=== PATIENT | female | born 1990 | race Asian ===

== ENCOUNTER → 2016-11-24 | Outpatient (CLI) | payer OTHER ==
--- NOTE | 2016-11-24 13:36 | US ---
November 24, 2015 Dear Ms. Kaila Judd, Thank you for requesting consultation and a ultrasound to evaluate anatomy for your patient, Mrs. Good. As you know, Alejandra is a 26 year old G 1 P 0 with a mishra dating 21 w 4 d; NUZHAT of 04/02/17 by LMP and 6 week ultrasound. She is a healthy woman without chroni c medical problems. She had a reassuring NIPT. ULTRASOUND Number of fetuses: 1 Placental location: Posterior; no evidence of previa Placental cord insertion: Intraplacental presentation: Cephalic Cervix: 3.0-3.1 cm viewed transvaginally. There is no evidence of insufficiency. Maximum Vertical Pocket: 5.5 cm The adnexa were evaluated. No pathology was seen. Right ovary is visualized and seen as normal. It measures 2.3 x 1.6 x 1.5 cm. Left ovary is visualized and seen as normal. It measures 2.5 x 1.9 x 0.9 cm. MEASUREMENTS: Biparietal diameter: 53 mm 22 weeks, 0days Head circumference: 194 mm 21 weeks, 5 days Abdominal circumference: 177 mm 22 weeks, 5days Femur length: 37 mm 21weeks, 6 days Humerus length: 34 mm 21 weeks, 4days Transcerebellar diameter: 23 mm 21 weeks, 1 days Average ultrasound age: 22 weeks, 1 days Estimated weight: 483 gm weight percentile: 76% ANATOMY Supratentorial brain: Normal including views of the falx, cavum septum pellucidum and choroids Lateral Ventricle: Normal, measuring 6.o mm Posterior fossa: Normal including the cerebellum and cisterna magna Spine: Normal Nuchal fold: 5.5 mm normal Face: Normal views of the lip and nose area Profile: Normal Palate: Normal appearance of the alveolar ridge Heart: Normal four chamber view and the outflow tracts are seen appropriately oriented and crossing. SVC/IVC seen. Aortic arch is seen. Heart Rate 144 bpm Diaphragm: Normal appearance without overt abnormality detected Stomach: Normal Umbilical cord insertion: Normal Right kidney: Normal Left kidney: Normal Bladder: Normal Number of cord vessels: Three Upper extremities: Normal Lower extremities: Normal Gender: Male IMPRESSION: 1. Intrauterine at 21 w 4d, ultrasound is consistent with her established NUZHAT of 04/02/17. 2. Normal anatomical survey. 3. Cervical length is normal at 3.0cm without evidence of insufficiency. RECOMMENDATIONS: I was pleased to review today's ultrasound with your patient and her using an Maltese interpre ter. I reassured them that the baby is growing appropriately with normal amniotic fluid volume. Our detailed review of the anatomy did not reveal any overt abnormalities. Future ultrasound and consultation is left to your clinical discretion. Thank you for allowing us the opportunity to evaluate your patient. Should you have any further ques tions or concerns please do not hesitate to contact me. Lila Poole MD Sr Account Executive Maternal Medicine Diagnosis Department of Obstetrics & Gynecology [facility]
--- NOTE | 2016-11-25 11:08 | US ---
Complete Detailed Obstetrical Sonography Clinical History: 26-year-old female presenting for anatomic screening and biometry. Technique: A curvilinear 5 MHz transducer was used to sonographically evaluate the fetus and placenta . M-mode Doppler is used. Dr. Lila Poole is present. Supplementary endovaginal sonography was also o btained of the maternal cervix. LMP: June 26, 2016, indicating an age of 21 weeks 4 days, and an estimated date of delivery of April 02, 2017. Comparison Study: None currently available. Findings: There is a single viable intrauterine gestation with the fetus currently vertex in presenta tion. The placenta is posteriorly situated, with no evidence of previa. The tip of the placenta termi nates 4.2 cm from the cervical os. There is a three-vessel cord with a normal intraplacental cord ins ertion. The maternal cervix measures between 3.0-3.3 cm in diameter endovaginally, with no funneling. The amniotic fluid volume is appropriate, with a maximal vertical pocket of 5.5 cm. The maternal rig ht ovary measures 2.3 x 1.6 x 1.5 cm, and the maternal left ovary measures 2.5 x 0.9 x 1.9 cm. The anatomic survey reveals a normal appearance to the craniovertebral axis. The lateral ventri cular diameter is 6 mm, the cisterna magna is 2.7 mm, and the nuchal fold is 5.5 mm. The spine is irena luated in sagittal and transverse planes, and appears normal. The nasolabial anatomy and the al veolar ridge are normal. There is a four-chambered heart with right and left ventricular outflow trac ts and an aortic arch identified. The heart rate is 144 beats per minute. The diaphragm is inta ct. The stomach, right and left kidneys, urinary bladder, and the upper and lower extremities appear normal. The gender is believed to be male. biometry is as follows: The biparietal diameter is 53 mm, corresponding to an age of 22 weeks 0 days +/- 1 week 6 days, which is at the 63rd percentile. The head circumference is 194 mm, corresponding to an age of 21 weeks 5 days +/- 1 week 4 days, which is at the 42nd percentile. The abdominal circumference is 177 mm corresponding to an age of 22 weeks 5 days +/- 2 weeks 1 day, w hich is at the 76th percentile. The femur length is 37 mm, corresponding to an age of 21 weeks 6 days +/- 1 week 6 days, which is at the 49th percentile. The humeral length is 34 mm, corresponding to an age of 21 weeks 4 days, and the transcerebellar diam eter is 23 mm, corresponding to an age of 21 weeks 1 day +/- 1 week 0 days, for a composite gestation al age of 22 weeks 1 day. The estimated weight is 483 grams +/- 171 grams, which is 1 pound 1 ounce +/- 2 ounces, which i s at the 76th percentile. The head circumference to abdominal circumference ratio is normal, measuring 1.10. The femur length t o biparietal diameter ratio measures 71%, and the femur length to abdominal circumference ratio is no rmal, measuring 21%. Impression: There is a single viable intrauterine gestation with no overt structural anomaly salazar ving a normal amniotic fluid volume and biometry concordant with menstrual dating. Please also refer to Dr. Poole's separate assessments and specific recommendations for follow up.
== END ==
LOC: FIMAGING 12:24
PROVIDERS: ATTEND Midwife
DX: Z34.02 Encounter for supervision of normal first pregnancy, second trimester (principal); Z3A.21 21 weeks gestation of pregnancy

== ENCOUNTER 2017-01-02 14:37 | Emergency (ER) | payer OTHER ==
[2017-01-02 14:45] VITALS: TEMP 98.2
[2017-01-02] MEDS ORDERED: NS 1,000 ML IV ONE (15:00)
[2017-01-02] MEDS ORDERED: AZITHROMYCIN IV 500 MG in D5W 250 ML IV ONE (15:00)
[2017-01-02] MEDS ORDERED: ONDANSETRON 4 MG/2 ML VIAL IVP ONE (15:00)
--- NOTE | 2017-01-02 15:04 | EDPHY ---
H & P Stated Complaint: FEVER, BODY ACHES, VOMITING Time Seen by Provider: 01/02/17 14:52 HPI/ROS: CHIEF COMPLAINT: Sinus congestion, ear pain, fevers HISTORY OF PRESENT ILLNESS: Patient is a 26-year-old woman who is 27 weeks comes to the emergency department complaining of 2 days worth of sinus congestion left ear pain and intermittent fevers. She does not feel febrile today. She did vomit once today after drinking honey and water. She has had trouble with nausea throughout her and take Zofran daily but did not take it today. She denies having any abdominal pain. She can feel the baby moving. No bleeding. No urinary symptoms. No diarrhea. REVIEW OF SYSTEMS: Constitutional: See HPI EENTM: See HPI Respiratory: denies: cough, shortness of breath Cardiac: denies: chest pain, irregular heart rate, lightheadedness, palpitations Gastrointestinal/Abdominal: See HPI Genitourinary: denies: dysuria, frequency, hematuria, pain Musculoskeletal: denies: joint pain, muscle pain Skin: denies: lesions, rash, jaundice, bruising Neurological: denies: headache, numbness, paresthesia, tingling, dizziness, weakness Hematologic/Lymphatic: denies: blood clots, easy bleeding, easy bruising Immunologic/allergic: denies: HIV/AIDS, transplant EXAM: GENERAL: Well-appearing, well-nourished and in no acute distress. HEAD: Atraumatic, normocephalic. EYES: Pupils equal round and reactive to light, extraocular movements intact, sclera anicteric, conjunctiva are normal. ENT: Sinus congestion, left tympanic membrane erythematous and bulging. oropharynx clear without exudates. Moist mucous membranes. NECK: Normal range of motion, supple without lymphadenopathy or JVD. LUNGS: Breath sounds clear to auscultation bilaterally and equal. No wheezes rales or rhonchi. HEART: Regular rate and rhythm without murmurs, rubs or gallops. ABDOMEN: Gravid above the umbilicus, nontender. normoactive bowel sounds. No guarding, no rebound. BACK: No CVA tenderness, no spinal tenderness, step-offs or deformities EXTREMITIES: Normal range of motion, no pitting or edema. No clubbing or cyanosis. NEUROLOGICAL: Cranial nerves II through XII grossly intact. Normal speech, normal gait. 5/5 strength, normal movement in all extremities, normal sensation PSYCH: Normal mood, normal affect. SKIN: Warm, dry, normal turgor, no visible rashes or lesions. Source: Patient Exam Limitations: No limitations - Personal History EDC: 04/08/17 Current Tetanus Diphtheria and Acellular Pertussis (TDAP): Unsure - Medical/Surgical History Hx Asthma: No Hx Chronic Respiratory Disease: No Hx Diabetes: No Hx Cardiac Disease: No Hx Renal Disease: No Hx Cirrhosis: No Other PMH: DENIES - Family History Significant Family History: No pertinent family hx - Social History Smoking Status: Never smoked Alcohol Use: Sober Drug Use: None Constitutional: Initial Vital Signs Temperature (C) 36.8 C 01/02/17 14:42 Heart Rate 110 H 01/02/17 14:42 Respiratory Rate 18 01/02/17 14:42 Blood Pressure 144/74 H 01/02/17 14:42 O2 Sat (%) 98 01/02/17 14:42 O2 Delivery Mode Room Air Allergies/Adverse Reactions: No Known Allergies Allergy (Verified 01/02/17 23:18) Home Medications: Medication Instructions Recorded AZITHROMYCIN [Z-PACK] 250 mg PO DAILY #4 tab 01/02/17 01/02/17 Medical Decision Making ED Course/Re-evaluation: Patient clearly has an otitis media as well as upper respiratory infection. She and her are requesting IV antibiotics here today because of her vomit earlier today. We agreed to this and will hydrate her as well because of her status. I will discharge with a prescription for azithromycin. Patient and agree with this plan. They declined further workup or testing at this time. Differential Diagnosis: Partial list of the Differential diagnosis considered include but were not limited to; upper respiratory tract infection, otitis media, influenza, pharyngitis and although unlikely based on the history and physical exam, I also considered abscess, peptic ulcer disease, obstruction, demise, urinary tract infection, appendicitis. I discussed these differential diagnoses and the plan with the patient as well as the usual and expected course. The patient understands that the diagnosis is provisional and that in medicine we are not always correct and that further workup is often warranted. Usual and customary warnings were given. All of the patient's questions were answered. The patient was instructed to return to the emergency department should the symptoms at all worsen or return, otherwise to followup with the physician as we discussed. - Data Points Medications Given: Discontinued Medications Azithromycin 500 mg/ Dextrose 255 mls @ 255 mls/hr IV EDNOW ONE PRN Reason: Protocol Stop: 01/02/17 15:59 Last Admin: 01/02/17 15:32 Dose: 255 mls Sodium Chloride (Ns) 1,000 mls @ 0 mls/hr IV ONCE ONE PRN Reason: Wide Open Stop: 01/02/17 15:01 Last Admin: 01/02/17 15:25 Dose: 1,000 mls Ondansetron HCl (Zofran) 4 mg IVP EDNOW ONE Stop: 01/02/17 15:01 Last Admin: 01/02/17 15:26 Dose: 4 mg Ondansetron HCl (Zofran Odt) 4 mg PO EDNOW ONE Stop: 01/02/17 16:21 Last Admin: 01/02/17 16:38 Dose: 4 mg Departure - Departure Disposition: Home, Routine, Self-Care Clinical Impression: Otitis media Qualifiers: Otitis media type: suppurative Laterality: left Chronicity: acute Recurrence: not specified as recurrent Spontaneous tympanic membrane rupture: without spontaneous rupture Qualified Code(s): H66.002 - Acute suppurative otitis media without spontaneous rupture of ear drum, left ear Qualifiers: Weeks of gestation: 27 weeks Qualified Code(s): Z3A.27 - 27 weeks gestation of Condition: Fair Instructions: Azithromycin (By mouth), Otitis Media (ED) Referrals: NONE *PRIMARY CARE P,. [Primary Care Provider] - As per Instructions Prescriptions: AZITHROMYCIN [Z-PACK] 250 mg PO DAILY #4 tab
[2017-01-02] MEDS ORDERED: ONDANSETRON DISINTEGRATING 4 MG TAB PO ONE (16:20)
[2017-01-02 16:42] VITALS: BP 131/91; PULSE 107; RESP 14; O2SAT 96
== END 2017-01-02 16:42 | disposition home or self-care (01) ==
DX: O99.89 Other specified diseases and conditions complicating pregnancy, childbirth and the puerperium (principal); H66.002 Acute suppurative otitis media without spontaneous rupture of ear drum, left ear; Z3A.27 27 weeks gestation of pregnancy
CPT/HCPCS: 96365; J0456; J2405

== ENCOUNTER 2017-01-02 23:07 | Emergency (ER) | payer OTHER ==
[2017-01-02 23:18] VITALS: RESP 16
--- NOTE | 2017-01-03 00:13 | EDPHY ---
H & P Stated Complaint: c/o cp radiating into LUE Source: Patient, Family Exam Limitations: No limitations - Personal History LMP (Females 10-55): - Medical/Surgical History Hx Asthma: No Hx Chronic Respiratory Disease: No Hx Diabetes: No Hx Cardiac Disease: No Hx Renal Disease: No Hx Cirrhosis: No Hx Alcoholism: No Hx HIV/AIDS: No Hx Splenectomy or Spleen Trauma: No Other PMH: DENIES - Social History Smoking Status: Never smoked HPI/ROS: CHIEF COMPLAINT: Body aches HISTORY OF PRESENT ILLNESS: patient was here in the emergency department earlier today with complaints of left ear pain and fever. She was discharged home with diagnosis of left otitis media. Prior to discharge she received 1st dose of her Zithromax by IV. Since discharge home she has had no vomiting. She has had no fever since discharge. She continues to deny any abdominal pain. She still feels movement. After discharge, she did note some body aches that started in the arms, back and into the legs. This is primarily the upper body. She has no headache. She has no neck pain or stiffness. No fever. No chest pain. No shortness of breath. No abdominal pain or urinary complaints. She feels as though she is sore all over. No particular modifying factors. In addition to this, she is asking for medication to help her sleep tonight. No other associated complaints or modifying factors. REVIEW OF SYSTEMS: Ten systems reviewed and are negative unless otherwise noted in the HPI EXAMINATION General Appearance: Alert, no distress Head: normocephalic, atraumatic Eyes: Pupils equal and round, no conjunctival pallor or injection ENT, Mouth: Mucous membranes moist . Left TM is erythematous and bulging. No perforation. Right TM is clear. No mastoid tenderness. Neck: Normal inspection, supple, non-tender. Painless range of motion in all planes. Respiratory: Lungs are clear to auscultation . No wheezing, rhonchi or crackles. Cardiovascular: Regular rate and rhythm . No murmur. Pulses intact distally. Gastrointestinal: Abdomen is soft and nontender . Gravid above the umbilicus. Quickening appreciated Neurological: A&O, nonfocal, Strength is symmetric in all limbs. Skin: Warm and dry, no rash Extremities: Arms are tender to the touch at multiple levels soft tissue. No point tenderness. No bony tenderness. Range of motion is intact. Psychiatric: Mood and affect normal DIFFERENTIAL DIAGNOSES: Including but not limited to Influenza, viral illness, otitis media, myalgia MDM: 12:10 a.m. after patient was discharged home earlier today, she notes the sudden onset of body aches. This is primarily upper body including the arms the back and legs. She has no abdominal pain. The baby is still moving. She has no vomiting since discharge from the ER earlier. She still has the same ear pain on the left side without change. No chest pain or shortness of breath. No cough. Her primary concern is the discomfort of the body aches as well as wanting to go to sleep. I have ordered a flu test and this is pending at this time. 1:30 a.m. flu test is negative. I have re-evaluated the patient. She is resting comfortably in no acute distress. She is asking to be discharged home in for something for sleep. I do feel that the most likely explanation of this is viral. I do not feel she warrants an IV or laboratory studies at this time she is in no pain. No fever. No vomiting. Discharged home with Benadryl for sleep , increase fluid intake, rest and the previously prescribed Zithromax for her infection. Patient's spouse are comfortable with this plan. SUPERVISION:This patient was independently evaluated without the aide of supervising physician. (Steve Aguilar) Constitutional: Initial Vital Signs Temperature (C) 36.7 C 01/02/17 23:14 Heart Rate 77 01/02/17 23:14 Respiratory Rate 16 01/02/17 23:14 Blood Pressure 111/77 01/02/17 23:14 O2 Sat (%) 99 01/02/17 23:14 O2 Delivery Mode Room Air Allergies/Adverse Reactions: No Known Allergies Allergy (Verified 01/02/17 23:18) Home Medications: Medication Instructions Recorded AZITHROMYCIN [Z-PACK] 250 mg PO DAILY #4 tab 01/02/17 01/02/17 Medical Decision Making ED Course/Re-evaluation: PHYSICIAN DOCUMENTATION: The patient was evaluated and managed by the Physician Field Liability Generalist. My co- signature indicates that I have reviewed this chart and I agree with the findings and plan of care as documented. I am the secondary supervising physician. (Shelli Vernon) - Data Points Laboratory Results: 01/03/17 00:10 Influenza Typ A,B (DFA) NEGATIVE FOR FLU (NEGATIVE) Medications Given: Discontinued Medications Diphenhydramine HCl (Benadryl) 50 mg PO EDNOW ONE Stop: 01/03/17 01:35 Last Admin: 01/03/17 01:41 Dose: 50 mg Departure - Departure Disposition: Home, Routine, Self-Care Clinical Impression: Myalgia Otitis media Qualifiers: Otitis media type: unspecified Laterality: left Chronicity: unspecified Qualified Code(s): H66.92 - Otitis media, unspecified, left ear Insomnia Qualifiers: Insomnia type: unspecified Qualified Code(s): G47.00 - Insomnia, unspecified Condition: Good Instructions: Influenza (ED), Otitis Media (ED) Referrals: NONE *PRIMARY CARE P,. [Primary Care Provider] - As per Instructions Ronna Tsai MD [Medical Doctor] - As per Instructions
[2017-01-03] MEDS ORDERED: diphenhydrAMINE 25 MG CAP PO ONE (01:34)
[2017-01-03] MEDS ORDERED: diphenhydrAMINE 50 MG CAP PO ONE (01:41)
[2017-01-03 01:42] VITALS: BP 113/71; PULSE 70; TEMP 97.9; O2SAT 97
== END 2017-01-03 01:42 | disposition home or self-care (01) ==
DX: H66.92 Otitis media, unspecified, left ear (principal); M79.1 Myalgia; G47.00 Insomnia, unspecified

== ENCOUNTER → 2017-03-17 | Outpatient (CLI) | payer OTHER | LOC: FIMAGING 13:53 | PROVIDERS: ATTEND Midwife | DX: O36.5931 Maternal care for other known or suspected poor fetal growth, third trimester, fetus 1 (principal); Z3A.37 37 weeks gestation of pregnancy ==

== ENCOUNTER 2017-04-02 10:20 | Observation (INO) | payer OTHER | END 2017-04-02 12:45 | disposition home or self-care (01) | LOC: FIMAGING 10:20 → FLD 11:29 | PROVIDERS: ADMIT Obstetrics & Gynecology; ATTEND Midwife | DX: O26.843 Uterine size-date discrepancy, third trimester (principal); Z3A.40 40 weeks gestation of pregnancy | CPT/HCPCS: 59025; 76818; G0378 ==

== ENCOUNTER 2017-04-06 16:00 | Inpatient (IN) | payer OTHER ==
[2017-04-06] MEDS ORDERED: TERBUTALINE SULFATE 1 MG/ML VIAL IV PRN (18:19)
[2017-04-06] MEDS ORDERED: EPSOM SALT 454 GM TP PRN (18:19)
[2017-04-06] MEDS ORDERED: LIDOCAINE 1% 30 ML SDV SC PRN (18:19)
[2017-04-06] MEDS ORDERED: OXYTOCIN/RINGERS LACTATE 1,000 ML IV PRN (18:19)
[2017-04-06] MEDS ORDERED: OLIVE OIL 118 ML BTL MISC PRN (18:19)
[2017-04-06] MEDS ORDERED: LR 1,000 ML IV PRN (18:19)
[2017-04-06] MEDS ORDERED: ACETAMINOPHEN 325 MG TAB PO PRN (18:23)
[2017-04-06] MEDS ORDERED: CALCIUM CARBONATE 500 MG CHEWABLE TAB PO PRN (18:24)
[2017-04-06] MEDS ORDERED: diphenhydrAMINE 25 MG CAP PO PRN (18:24)
[2017-04-06 19:00] LABS: % IMMATURE GRANULYOCYTES 2.7 % (0.0-1.1); ABSOLUTE IMMATURE GRANULOCYTES 0.29 10^3/uL (0.00-0.10); ADD DIFF? NO; ADD MORPH? NO; ADD SCAN? NO; ATYPICAL LYMPHOCYTE FLAG 10 (0-99); FRAGMENT RBC FLAG 0 (0-99); HEMATOCRIT 41.4 % (38.0-47.0); HEMOGLOBIN 14.1 g/dL (12.6-16.3); LEFT SHIFT FLG 20 (0-99); LIPEMIA HEMOLYSIS FLAG 90 (0-99); MEAN CELL HEMOGLOBIN 30.8 pg (27.9-34.1); MEAN CELL HEMOGLOBIN CONCENTR. 34.1 g/dL (32.4-36.7); MEAN CELL VOLUME 90.4 fL (81.5-99.8); MEAN PLATELET VOLUME 11.6 fL (8.7-11.7); PLATELET CLUMPS FLAG 0 (0-99); PLATELET COUNT 216 10^3/uL (150-400); RED BLOOD CELL COUNT 4.58 10^6/uL (4.18-5.33); RED CELL DISTRIBUTION WIDTH 13.1 % (11.5-15.2)
[2017-04-07] MEDS ORDERED: OXYTOCIN/LR *STANDARD DOSE PROTOCOL IV SCH (05:00)
[2017-04-07] MEDS ORDERED: LIDOCAINE 1% 30 ML SDV ONE (05:01)
[2017-04-07] MEDS ORDERED: OLIVE OIL 118 ML BTL ONE (05:01)
[2017-04-07] MEDS ORDERED: TERBUTALINE SULFATE 1 MG/ML VIAL ONE (05:02)
[2017-04-07] MEDS ORDERED: OXYTOCIN 10 UNIT/ML VIAL ONE (05:02)
[2017-04-07] MEDS ORDERED: AMMONIA AROMATIC 1 EACH AMP IH ONE (05:02)
[2017-04-07] MEDS ORDERED: MISOPROSTOL 200 MCG TAB ONE (05:03)
--- NOTE | 2017-04-07 08:28 | OBPROG ---
OBG Progress Note Assessment/Plan: Assessment: 26 y.o. admitted to L&D for IOL at 40 5/7 weeks. Reports feeling well with regular uterine contractions. Carter bulb in place. Plan: Exam performed with carter bulb removed and AROM with moderate amount of meconium -stained fluid. Continue EFM and VS per protocol. LELA per patient request. 04/07/17 08:24 Subjective: Reports tolerating uterine contractions well. Has been ambulating without vertigo. Good support from . Objective: 04/06/17 18:40 Patient ABO/Rh O POSITIVE 04/06/17 18:40 - SVE Dilation (cm): 4 Effacement (%): 75 Station: -2 Current Contraction Pattern: Regular FHR (bpm): 130 FHR Pattern Variability: Moderate FHR Category: 1 Membranes: AROM Amniotic Fluid Color: Meconium Stained-Moderate - Physical Exam General Appearance: WD/WN, alert, no apparent distress Estimated Weight: 2501-3400g EENT: normal ENT inspection Neck: non-tender, full range of motion, normal inspection Respiratory: lungs clear, normal breath sounds Cardiac/Chest: regular rate, rhythm Abdomen: non-tender, soft Extremities: non-tender, normal inspection Back: Normal inspection Skin: normal color, warm/dry Neuro/Psych: alert, normal mood/affect, oriented x 3 ICD10 Worksheet Patient Problems: Problems Problem Status Onset Post-dates Acute - ICD10 Problem Qualifiers (1) Post-dates Qualifiers: Post-term type: P
[2017-04-07] MEDS ORDERED: BUPIVACAINE 0.25% 30 ML SDV ONE (09:41)
[2017-04-07] MEDS ORDERED: PHENYLEPHRINE HCL 100 MCG/ML SYR ONE (09:41)
[2017-04-07] MEDS ORDERED: fentaNYL 100 MCG/2 ML INJ ONE (09:41)
[2017-04-07] MEDS ORDERED: fentaNYL 2MCG/ML/BUP 0.1% RTU 100 ML BAG EP ONE (09:41)
--- NOTE | 2017-04-07 11:00 | OBPROG ---
OBG Progress Note Assessment/Plan: Assessment: 26 y.o. admitted to L&D for IOL at 40 5/7 weeks. Reports feeling well with regular uterine contractions. Comfortable with LELA in place Plan: Patient with LELA in place and will plan to labor down and then begin pushing in 1 hour. Anticipate . 04/07/17 08:24 04/07/17 10:59 Subjective: Appears comfortable with LELA in place. present at bedside and supportive. Objective: 04/06/17 18:40 Patient ABO/Rh O POSITIVE 04/06/17 18:40 - SVE Dilation (cm): 9 Effacement (%): 100 Station: +1 Current Contraction Pattern: Regular FHR (bpm): 130 FHR Pattern Variability: Moderate FHR Category: 1 Membranes: AROM Amniotic Fluid Color: Meconium Stained-Moderate - Physical Exam Estimated Weight: 2501-3400g ICD10 Worksheet Patient Problems: Problems Problem Status Onset Post-dates Acute - ICD10 Problem Qualifiers (1) Post-dates Qualifiers: Post-term type: P
[2017-04-07] MEDS ORDERED: ONDANSETRON 4 MG/2 ML VIAL IVP PRN (11:59)
[2017-04-07] MEDS ORDERED: PHENYLEPHRINE HCL 100 MCG/ML SYR IVP PRN (11:59)
[2017-04-07] MEDS ORDERED: LR 500 ML IV SCH (12:00)
[2017-04-07] MEDS ORDERED: fentaNYL 2MCG/ML/BUP 0.1% RTU 100 ML EP SCH (12:00)
--- NOTE | 2017-04-07 12:02 | POSTANESTH ---
Post Anesthetic Evaluation Cardiovascular Status: Normal, Stable Respiratory Status: Normal, Stable, Similar to Pre-op Cond. Level of Consciousness/Mental Status: Can Participate in Eval, Alert and Oriented (Tolerated CSE well, stable, comfortable.) Pain Control: Adequate, Prn Tx Ordered Nausea/Vomiting Control: Adequate, Prn Tx Ordered Complications Possibly Related to Anesthesia: None Noted (Tolerated CSE well, stable, comfortable.)
--- NOTE | 2017-04-07 12:05 | PREANESOB ---
Obstetric Pre-Anesthesia Info - General Info Proposed Procedure: Labor and delivery with pitocin. : 1 Para: 0 WBD: 40 - Info Status: Postmature Monitors: External FHR Baseline (bpm): 120 FHR Pattern: Reassuring - Labor Status Cervical Dilation per last OB SVE: 4 Station per last OB SVE: +1 Amniotic Fluid Color: Meconium Stained-Moderate Pitocin: In Use Indications for Labor Analgesia: Induction of Labor, Pain Control Labor Epidural: Proposed Anesthesia Allergies/Adverse Reactions: Allergy/AdvReac Type Severity Reaction Status Date / Time No Known Allergies Allergy Verified 01/02/17 23:18 Home Medications: Medication Instructions Recorded 1 tab PO DAILY 01/02/17 Visit Medications: Generic Name Dose Route Start Last Admin Trade Name Freq PRN Reason Stop Dose Admin Acetaminophen 650 mg 04/06/17 18:23 Tylenol PO 10/03/17 18:22 Q4H PRN Pain, Mild/Fever, Can Take PO Calcium Carbonate 1,000 mg 04/06/17 18:24 Tums PO 10/03/17 18:23 Q4H PRN HEARTBURN Diphenhydramine HCl 25 mg 04/06/17 18:24 04/06/17 22:20 Benadryl PO 10/03/17 18:23 25 mg HS PRN Administration SLEEP/INSOMNIA Lactated Ringer's 1,000 mls @ 0 mls/hr 04/06/17 18:19 04/07/17 05:28 Lr IV 10/03/17 18:18 1,000 mls PRN PRN Administration SEE PROTOCOL CONDITIONS Protocol Per Protocol Oxytocin/Lactated Ringer's 1,000 mls @ 150 mls/hr 04/06/17 18:19 Pitocin 20 Units/Lr (Premix) IV PRN PRN Post- bleeding Oxytocin/Lactated Ringer's 500 mls @ 0 mls/hr 04/07/17 05:00 04/07/17 05:28 Pitocin 30 Units/Lr (Premix) IV 10/04/17 04:59 500 mls CONT TREVOR Administration Protocol Per Protocol Fentanyl/Bupivacaine HCl 100 mls @ 0 mls/hr 04/07/17 12:00 Fentanyl/Bupivacaine/Ns 2 Mcg/Ml 0.1% (Premix EP 04/17/17 11:59 CONT TREVOR Protocol As Directed Lactated Ringer's 500 mls @ 0 mls/hr 04/07/17 12:00 Lr IV 10/04/17 11:59 CONT TREVOR As Directed Ibuprofen 600 mg 04/06/17 18:19 Motrin PO 10/03/17 18:18 Q6HRS PRN post , inflammation Lidocaine HCl 30 ml 04/06/17 18:19 Lidocaine Hcl 1% SC 10/03/17 18:18 ONCE PRN Episiotomy Magnesium Sulfate 454 gm 04/06/17 18:19 Epsom Salt TP 10/03/17 18:18 PRN PRN perineal discomfort [place] Oil 118 ml 04/06/17 18:19 Sweet Oil MISC 10/03/17 18:18 ONCE PRN preneal massage Ondansetron HCl 4 mg 04/07/17 11:59 Zofran IVP 10/04/17 11:58 Q4HRS PRN Nausea/Vomiting, Can't Take PO Phenylephrine HCl 100 mcg 04/07/17 11:59 Horace-Synephrine IVP 10/04/17 11:58 .Q2M PRN Hypotension Terbutaline Sulfate 0.25 mg 04/06/17 18:19 Brethine IV 10/03/17 18:18 ONCE PRN Tachysystole Discontinued Medications Generic Name Dose Route Start Last Admin Trade Name Freq PRN Reason Stop Dose Admin Ammonia (Aromatic Spirit) Confirm 04/07/17 05:02 Ammonia Aromatic Administered 04/07/17 05:03 Dose 1 each IH .STK-MED ONE Bupivacaine HCl Confirm 04/07/17 09:41 Sensorcaine 0.25% Sdv Administered 04/07/17 09:42 Dose 30 ml .ROUTE .STK-MED ONE Ephedrine Sulfate Confirm 04/07/17 05:02 Ephedrine Sulfate Administered 04/07/17 05:03 Dose 50 mg .ROUTE .STK-MED ONE Fentanyl Confirm 04/07/17 09:41 Sublimaze Administered 04/07/17 09:42 Dose 100 mcg .ROUTE .STK-MED ONE Fentanyl/Bupivacaine HCl Confirm 04/07/17 09:41 Fentanyl/Bupivacaine/Ns 2 Mcg/Ml 0.1% (Premix Administered 04/07/17 09:42 Dose 100 ml EP .STK-MED ONE Lidocaine HCl Confirm 04/07/17 05:01 Lidocaine Hcl 1% Administered 04/07/17 05:02 Dose 30 ml .ROUTE .STK-MED ONE Misoprostol Confirm 04/07/17 05:03 Cytotec Administered 04/07/17 05:04 Dose 800 mcg .ROUTE .STK-MED ONE [place] Oil Confirm 04/07/17 05:01 Sweet Oil Administered 04/07/17 05:02 Dose 118 ml .ROUTE .STK-MED ONE Oxytocin Confirm 04/07/17 05:02 Pitocin Administered 04/07/17 05:03 Dose 40 unit .ROUTE .STK-MED ONE Phenylephrine HCl Confirm 04/07/17 09:41 Horace-Synephrine Administered 04/07/17 09:42 Dose 1,000 mcg .ROUTE .STK-MED ONE Terbutaline Sulfate Confirm 04/07/17 05:02 Brethine Administered 04/07/17 05:03 Dose 1 mg .ROUTE .STK-MED ONE - Anesthesia History Response to Local Anesthetics: Normal - Social History Substance Use/Abuse: Denies - Focused Exam Blood Pressure: 120/73 Heart Rate: 75 Height/Weight (Nursing): Height 157 cm Weight 57.379 kg Physical Exam: Within normal limits. ASA Status: II Labs: 04/06/17 18:40 Patient ABO/Rh O POSITIVE 04/06/17 18:40 - Plan Anesthetic Plan: CSE Consent Signed and on Chart: Yes Patient/Guardian Understands and Agrees to Plan: Yes
--- NOTE | 2017-04-07 13:23 | OBPROC ---
- Labor and Delivery Onset of Contractions Date: 04/07/17 Onset of Contractions Time: 05:00 Onset of Contractions Type: Induced Rupture of Membranes Date: 04/07/17 Rupture of Membranes Time: 08:18 Rupture of Membranes Type: Artificial Amniotic Fluid Color: Meconium Stained-Moderate Dilation Complete Time: 12:00 Delivery Type: Spontaneous Placenta Delivery Date: 04/07/17 Placenta Delivery Time: 12:57 Episiotomy/Laceration: 2nd Degree Repair: 3-0, Vicryl EBL: 300 - Medications Labor Augmentation/Induction Meds Used: Pitocin Labor Augmentation/Induction Indication: Post Dates Anesthesia: Epidural - Info A Delivery Date: 04/07/17 Delivery Time: 12:52 Sex of Infant: Male Score (1 Min): 8 Score (5 Min): 9
[2017-04-07] MEDS: IBUPROFEN 600 MG TAB PO PRN ×2 (13:27→20:39)
[2017-04-07 21:22] VITALS: O2SAT 97
[2017-04-08] MEDS: IBUPROFEN 600 MG TAB PO PRN ×3 (08:40→23:19)
--- NOTE | 2017-04-08 14:08 | SOAPPROG ---
SOAP Progress Note Assessment/Plan: Assessment: 26 y.o. s/p PPD #1. Recovering well with good pain control. . Plan: Routine care. consult. Anticipate discharge tomorrow. 04/07/17 10:59 04/08/17 14:06 Subjective: Reports feeling tired, but minimal vaginal bleeding and discomfort. with assistance. Eating and drinking well without nausea or vomiting. Ambulating without vertigo. Appropriate mood with good family support. Objective: Vital Signs Temp Pulse Resp BP Pulse Ox 36.6 C 81 20 131/83 H 97 04/07/17 20:00 04/07/17 20:00 04/07/17 20:00 04/07/17 20:00 04/07/17 20:00 Laboratory Results 04/06/17 18:40 04/07/17 04/08/17 04/09/17 05:59 05:59 05:59 Output Total 300 Balance -300 - Time Spent With Patient Time Spent With Patient: 20 minutes - Pending Discharge Pending Discharge Within 24 Hours: Yes Pending Discharge Date: 04/09/17 Pending Discharge Time: 11:00 Physical Exam - Physical Exam General Appearance: WD/WN, alert, no apparent distress EENT: normal ENT inspection Neck: non-tender, full range of motion, normal inspection Respiratory: lungs clear, normal breath sounds Cardiac/Chest: regular rate, rhythm Abdomen: non-tender, soft Pelvic Exam: normal external exam Rectal: deferred Back: Normal inspection Skin: normal color, warm/dry Lymphatic: no adenopathy Extremities: normal range of motion, non-tender Neuro/Psych: alert, normal mood/affect, oriented x 3 ICD10 Worksheet Patient Problems: Problems Problem Status Onset Post-dates Acute - ICD10 Problem Qualifiers (1) Post-dates Qualifiers: Post-term type: P
[2017-04-08 16:13] VITALS: RESP 18
--- NOTE | 2017-04-09 07:30 | SOAPPROG ---
SOAP Progress Note Assessment/Plan: Assessment: 26 yo s/p , ppd 2, doing well. Plan: 04/09/17 07:30 Rh +, rubella immune, home today. Subjective: 26 yo s/p , ppd 2, doing well. Objective: Vital Signs Temp Pulse Resp BP Pulse Ox 36.9 C 80 18 118/78 97 04/08/17 20:00 04/08/17 20:00 04/08/17 20:00 04/08/17 20:00 04/08/17 20:00 Laboratory Results 04/06/17 18:40 04/08/17 04/09/17 04/10/17 05:59 05:59 05:59 Output Total 300 Balance -300 Physical Exam - Physical Exam General Appearance: no apparent distress Abdomen: non-tender, soft Skin: warm/dry Extremities: non-tender Neuro/Psych: oriented x 3 ICD10 Worksheet Patient Problems: Problems Problem Status Onset Post-dates Acute
[2017-04-09 09:45] VITALS: BP 96/65; PULSE 79; TEMP 97.9
[2017-04-09] MEDS: IBUPROFEN 600 MG TAB PO PRN (11:13)
== END 2017-04-09 15:00 | disposition home or self-care (01) | DRG 775 ==
LOC: FLD 17:41 → FOB 04-07 16:14
PROVIDERS: ADMIT Obstetrics & Gynecology; ATTEND Obstetrics & Gynecology
PROC: 0U7C7DZ Dilation of Cervix with Intraluminal Device, Via Natural or Artificial Opening (ICD-10-PCS; principal; 2017-04-07)
PROC: 10E0XZZ Delivery of Products of Conception, External Approach (ICD-10-PCS; principal; 2017-04-07)
PROC: 0KQM0ZZ Repair Perineum Muscle, Open Approach (ICD-10-PCS; principal; 2017-04-07)
PROC: 3E033VJ Introduction of Other Hormone into Peripheral Vein, Percutaneous Approach (ICD-10-PCS; principal; 2017-04-07)
PROC: 10907ZC Drainage of Amniotic Fluid, Therapeutic from Products of Conception, Via Natural or Artificial Opening (ICD-10-PCS; principal; 2017-04-07)
DX: O48.0 Post-term pregnancy (principal); Z37.0 Single live birth; Z3A.40 40 weeks gestation of pregnancy; O70.1 Second degree perineal laceration during delivery
CPT/HCPCS: J2370; J2590; J3010; J3105